=== PATIENT | female | born 1970 | race Two or more races ===

== ENCOUNTER → 2024-06-05 | Outpatient (CLI) | payer MEDICAID, SELFPAY ==
--- NOTE | 2024-06-05 10:18 | XR_ITS ---
Examination: Right knee 4 views TECHNIQUE: AP oblique lateral axial right knee 4 views Exam date and time: June 05, 2024 1139 hours INDICATIONS: Knee pain years. FINDINGS: Moderate to advanced tricompartment osteoarthritis, most severe narrowing medial joint space No fracture No patellar dislocation Small knee effusion IMPRESSION: Moderate to advanced tricompartment osteoarthritis
== END | disposition home or self-care (01) ==
LOC: CDIM 10:03
PROVIDERS: Referring Provider Orthopaedic Surgery; Visit Provider Orthopaedic Surgery
DX: M17.11 Unilateral primary osteoarthritis, right knee (principal)
CPT/HCPCS: 73564

== ENCOUNTER 2024-08-24 07:50 | Day surgery (SDC) | payer MEDICAID, SELFPAY ==
--- NOTE | 2024-08-23 07:06 | EKG_ITS ---
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 STUDENT : 1970 Requested By: Silvana Bentley Order Number: [id number] Reading MD: Silvana Bentley Measurements Intervals [place]lass Rate: 68 P: 36 LA: 158 QRS: -20 QRSD: 108 T: 16 QT: 385 QTc: 411 Interpretive Statements SINUS RHYTHM WITH SINUS ARRHYTHMIA LOW QRS VOLTAGE IN PRECORDIAL LEADS [QRS DEFLECTION < 1.0 mV IN CHEST LEADS] POSSIBLE ANTERIOR MYOCARDIAL INFARCTION , PROBABLY OLD [30 ms Q WAVE IN V3/V4, OR R < 0.2 mV IN V4] Compared to ECG 12/15/2021 09:42:09 Low QRS voltage now present Myocardial infarct finding now present Sinus bradycardia no longer present Incomplete right bundle-branch block no longer present /store/S0/[id number]/ecg/[id number].pdf
[2024-08-23 12:07] VITALS: BMI 46.3
[2024-08-23 12:44] LABS: Collection Type, Urine Clean Catch
[2024-08-23 13:13] LABS: Basophils % (Auto) 0 % (0-2.5); Eosinophils # (Auto) 0.2 Thou/mm3 (0.0-0.5); Eosinophils % (Auto) 2 % (0-10); Hematocrit 41.2 % (36.0-46.0); Hemoglobin 13.5 g/dL (12.0-16.0); Immature Granulocytes % (Auto) 0 % (0-0); Immature Granulocytes Auto 0.04 Thou/mm3 (0.00-0.00); Lymphocytes # (Auto) 3.2 Thou/mm3 (1.0-4.8); Lymphocytes % (Auto) 35 % (10-50); Mean Corpuscular HGB Conc 32.8 g/dl (31.0-37.0); Mean Corpuscular Hemoglobin 27.6 pg (25.0-35.0); Mean Corpuscular Volume 84 fL (80-100); Monocytes # (Auto) 0.6 Thou/mm3 (0.0-0.8); Monocytes % (Auto) 7 % (0-12); Neutrophils % (Auto) 55 % (37-80); Nucleated Red Blood Cell % 0 /100 WBC (0); Platelet Count 345 Thou/mm3 (140-440); RDW Standard Deviation 42.2 fL (36.4-46.3)
[2024-08-23 13:17] LABS: Bilirubin,Urine Negative (Negative); Blood,Urine Negative (Negative); Clarity,Urine Clear (Clear/Hazy); Color,Urine Lt-Yellow (Lt Yel-Yel); Glucose, Urine Negative (Negative); HCG Qualitative,Urine Negative; Ketones,Urine Negative (Negative); Leukocyte Esterase,Urine Negative (Negative); Nitrite,Urine Negative (Negative); PH,Urine 6.5 (5.0-7.0); Protein,Urine Negative (Neg - Trace); RBC,Urine 1 /hpf (0-3); Specific Gravity,Urine 1.015 (1.001-1.035); Squamous Epithelial Cell,Urine 3 /hpf (0-5); Urobilinogen,Urine Negative mg/dL (0.0-1.0); WBC,Urine 1 /hpf (0-5)
[2024-08-23 13:35] LABS: Alanine Aminotransferase 32 U/L (10-49); Albumin, Serum 4.4 gm/dL (3.5-5.0); Albumin/Globulin Ratio 1.4 (1.2-2.2); Alkaline Phosphatase 84 U/L (46-116); Anion Gap 9 (7-16); Aspartate Amino Transferase 31 U/L (0-34); BUN/Creatinine Ratio 25 Ratio (12-20); Bilirubin,Total 0.6 mg/dL (0.3-1.2); Blood Urea Nitrogen 15 mg/dL (9-23); Calcium 9.7 mg/dL (8.3-10.6); Calcium (Corrected) 9.7 mg/dL (8.5-10.1); Carbon Dioxide 28.4 mMol/L (20.0-31.0); Chloride 106 mMol/L (98-107); Creatinine (Component) 0.6 mg/dL (0.6-1.3); Estimated Creatinine Clearance 123.7 mL/min (>60); Globulin 3.1 gm/dL (2.3-3.5); Glucose 85 mg/dL (74-106); Osmolality,Calculated 284 (275-295); Potassium 3.8 mMol/L (3.4-5.1); Sodium 143 mMol/L (136-145); Total Protein 7.5 gm/dL (5.7-8.2); eGFR > 60 See Note
[2024-08-24] VITALS (7 sets, daily range): BP systolic 114–158; BP diastolic 74–110; PULSE 63–74; RESP 12–20; TEMP 36.1–36.3; O2SAT 97–100; BMI 46.1
[2024-08-24] MEDS: RINGERS LACTATED 1000 ML 1,000 ML 20 ML IV (08:25)
--- NOTE | 2024-08-24 08:52 | CHAP ---
Patient expressed gratitude for prayer before their procedure.
--- NOTE | 2024-08-24 11:18 | ESOP_ITS ---
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 received general anesthesia and prepped and drpaed in usual sterile fashion in dorsal lithotomy position. Bladder staright catheterised . Under General anesthesia , cervix was prolapsing outside the introitus , os was stenotic Anterior lip of cervix held with single tooth tenaculum and using the lacrimal dilator and gradually cervical os dilated to 8 mm Then hysteroscope introduced and a small polyp seen in uterusand some shaggy tissue , and removed with the myosure reach. The uterine cavity is intact ostia seen, bilaterally . Deficit is 195 cc . Fluid used is normal saline . Pictures taken . Then hysteroscope and all vaginal . instruments removed . small bleeding spot on the R of cervix due to tenaculum and bleeding controlled with a 2,0 vicryl suture as silver nitrate was not able to achieve hemostasis . Patient tolerated procedure well. Specimen: other (uterine polyp and endometrial tissue ) Estimated blood loss (ml): 20 Findings: see above Complications: none Narrative: see procedure Surgical staff Operation Date: 08/24/24 10:15 <No data on this case meets the specified criteria>
--- NOTE | 2024-08-24 11:23 | SUR.PHASEI ---
1123: Pt. wakes to name then drifts back to sleep, vitals stable, breathing unlabored, no complaint of pain or nausea, peripad in place CDI, no active bleed noted, report received from Manas URBINA and Connie ACEVEDO.
[2024-08-24] MEDS: fentaNYL CIT INJ 50 mCg/ML AMP 2ML 25 MCG IVP (12:00)
--- NOTE | 2024-08-24 12:25 | SUR.PHASEII ---
1225: Pt. AAOx4, vitals stable, breathing unlabored, no complaint of pain or nausea, peripad in place CDI, no active bleed noted, pt. tolerated sips of water well, pt. ambulated to wheelchair with steady gait and no assist, no complications. Gave discharge instructions to the pt. and her ride using [employer] spanish teacher, both verbalized understanding and had no further questions. Pt. left with all personal belongings.
== END 2024-08-24 12:25 | disposition home or self-care (01) ==
PROVIDERS: Anesthesiology; PCP Nurse Practitioner Family; Referring Provider Obstetrics & Gynecology; Visit Provider Obstetrics & Gynecology
PROC: 0U5B8ZZ Destruction of Endometrium, Via Natural or Artificial Opening Endoscopic (ICD-10-PCS; CPT 58563; principal; 2024-08-24 10:00)
DX: N84.0 Polyp of corpus uteri (principal); M48.02 Spinal stenosis, cervical region; Z01.810 Encounter for preprocedural cardiovascular examination
CPT/HCPCS: 58558; 36415; 80048; 80053; 81001; 81025; 85025; 93005; A4217; A4649; J0131; J0690; J1885; J2250; J2405; J2704; J2765; J3010; J7120